=== PATIENT | female | born 1965 | race Caucasian/White ===

== ENCOUNTER → 2019-02-23 | Day surgery (SDC) | payer OTHER ==
--- NOTE | 2019-02-27 12:54 | PATH ---
Surgical Pathology Report Patient Name: TYLER BERRY [facility]. Rec. #: [id number] /Age/Gender: 1965 (Age: 53) / F Account: [id number] Location: [facility] Taken: 02/23/2019 Received: 02/23/2019 Reported: 02/27/2019 Physicians: Frank Aleman MD Specimen(s) Received A: RIGHT BREAST SPECIMEN - WITH CALCIFICATIONS B: RIGHT BREAST SPECIMEN - WITHOUT CALCIFICATIONS Clinical History Nonpalpable lesion Mammographic findings: Microcalcification, suspicious Final Diagnosis A. BREAST, RIGHT, WITH CALCIFICATIONS, STEREOTACTIC BIOPSY: BENIGN BREAST TISSUE SHOWING COLUMNAR CELL CHANGE WITH ASSOCIATED CALCIFICATIONS. B. BREAST, RIGHT, WITHOUT CALCIFICATIONS, STEREOTACTIC BIOPSY: BENIGN BREAST TISSUE SHOWING COLUMNAR CELL CHANGE WITH ASSOCIATED CALCIFICATIONS. Electronically Signed Floridalma Mcneal M.D. Gross Description A. Received in formalin labeled "right breast specimen with calcifications," are 3 cullen-yellow, cylindrical portions of fibroadipose tissue ranging from 2.5-3.5 cm in length and averaging 0.2 cm in diameter. The specimens are submitted in toto in one cassette. B. Received in formalin labeled "right breast specimen without calcifications," are 5 cullen-yellow, cylindrical portions of fibroadipose tissue ranging from 1.3-4.3 cm in length and averaging 0.2 cm in diameter. The specimens are submitted in toto in 2 cassettes. Time to formalin fixation: 5 minutes Total formalin fixation time: Approximately 6 hours. 02/23/201902/23/2019
== END | disposition home or self-care (01) ==
LOC: FMAMMOTONE 10:08
PROVIDERS: ATTEND Family Medicine
PROC: 0HBT3ZX Excision of Right Breast, Percutaneous Approach, Diagnostic (ICD-10-PCS; principal; 2019-02-23)
DX: N64.89 Other specified disorders of breast (principal); R92.1 Mammographic calcification found on diagnostic imaging of breast
CPT/HCPCS: 19081; 87899; 88305-TC; A4648

== ENCOUNTER 2024-02-27 12:53 | Emergency (ER) | payer OTHER ==
[2024-02-27 13:01] VITALS: BP 124/75; PULSE 78; RESP 19; TEMP 98.1; BMI 28.8
[2024-02-27] MEDS ORDERED: IBUPROFEN 600 MG TABLET (FP) PO ONE ×2 (13:59→14:02)
== END 2024-02-27 14:16 | disposition home or self-care (01) ==
LOC: JERFT 12:53 → JER 12:53 → JERFT 14:16
DX: S93.402A Sprain of unspecified ligament of left ankle, initial encounter (principal); X50.1XXA Overexertion from prolonged static or awkward postures, initial encounter
CPT/HCPCS: 73610-TC-LT-FY; 73630-TC-LT; 99283-25